=== PATIENT | female | born 1995 | race Caucasian/White ===

== ENCOUNTER → 2018-08-22 08:52 | Outpatient (CLI) | payer OTHER, SELFPAY ==
--- NOTE | 2018-08-22 08:57 | XR_ITS ---
XR tibia fibula RT 2V CLINICAL INDICATION: ITS.REASON: Rt leg pain ORDERING PHYSICIAN: Tanesha Mckeon MD PATIENT AGE: 23 years Comparison: None FINDINGS: No fracture dislocation or other significant anomalies IMPRESSION: Negative right tib-fib
== END ==
PROVIDERS: PCP Emergency Medicine; Visit Provider Orthopaedic Surgery
DX: M79.604 Pain in right leg (principal)
CPT/HCPCS: 73590

== ENCOUNTER 2020-03-26 19:10 | Emergency (ER) | payer OTHER, SELFPAY ==
[2020-03-26 19:34] VITALS: BP 150/101; PULSE 95; RESP 14; TEMP 37.2; O2SAT 97; BMI 51.5
--- NOTE | 2020-03-26 20:00 | HMH.EDUTC ---
[facility] [place] Disposition Clinical Impression: Sinusitis Qualifiers: Sinusitis location: unspecified location Chronicity: acute Recurrence: non-recurrent Qualified Code(s): J01.90 - Acute sinusitis, unspecified Pharyngitis Qualifiers: Pharyngitis/tonsillitis etiology: unspecified etiology Qualified Code(s): J02.9 - Acute pharyngitis, unspecified Disposition: Home, Self-Care Condition on Discharge: Good Instructions: Sinusitis, DI for Sinusitis Additional Instructions: Drink plenty of fluids. Take tylenol or ibuprofen for pain or fever. Take the medications as directed. Follow up with your regular doctor. GO TO THE ER FOR ANY WORSENING SYMPTOMS Don't start the oral steroids until tomorrow, since you had the shot here today. Prescriptions: Brompheniramine/Pseudoephed/Dm [Bromfed Dm Cough Syrup] 5 ml PO Q6HP PRN #240 syrup PRN Reason: Cough Transmission Status: Received by [facility] # Ondansetron [Zofran 4mg ODT] 4 mg PO Q8HP PRN #20 tab.rapdis PRN Reason: Nausea Transmission Status: Received by [facility] # Doxycycline Hyclate [Doxycycline 100mg Capsule] 100 mg PO Q12 10 Days #20 cap Transmission Status: Received by [facility] # methylPREDNISolone [Medrol] 4 mg PO DIRECTED 6 Days #21 tab.ds.pk Transmission Status: Received by [facility] # Referrals: Aiden Ramirez MD [Primary Care Provider] - Forms: Work/School Release Time of Disposition: 20:22 Medical Decision Making - Medical Records Medical records reviewed: No: I reviewed the patient's medical records. - Moy Inquiry Pt receiving controlled substance: No Vital Signs: 03/26/20 19:34 03/26/20 20:38 Temperature 98.9 F 98.9 F Temperature Source Oral Oral Pulse Rate 95 H Pulse Rate [Radial] 95 H Respiratory Rate 14 14 Blood Pressure 150/101 H Blood Pressure [Right Arm] 150/101 H Blood Pressure Mean [Right Arm] 117 Blood Pressure Source Automatic Cuff Blood Pressure Source [Right Arm] Automatic Cuff Blood Pressure Position Sitting Blood Pressure Position [Right Arm] Sitting 02 Sat by Pulse Oximetry 97 Oxygen Delivery Method Room Air Room Air Orders (Tests/Meds): ED MEDICATIONS Discontinued Medications Generic Name Dose Route Start Last Admin Trade Name Terri PRN Reason Stop Dose Admin Ceftriaxone Sodium 1 gm 03/26/20 20:03 03/26/20 20:28 Rocephin 1gm Vial IM 03/26/20 20:04 1 gm ONCE ONE Administration Protocol Lidocaine HCl 0 ml 03/26/20 20:03 03/26/20 20:28 Lidocaine 1% 10ml Mdv IM 03/26/20 20:04 2.1 ml ONCE ONE Administration Methylprednisolone Sodium Succinate 125 mg 03/26/20 20:03 03/26/20 20:28 Solu-Medrol 125mg/2ml Vial IM 03/26/20 20:04 125 mg ONCE ONE Administration [facility] [place] HPI - General Stated complaint: Sore throat, cough Time Seen by Provider: 03/26/20 20:00 Mode of Arrival: Ambulatory Source of Information: Patient Limitations: No Limitations Description of Symptoms (Recalled from Triage Doc. by RN): sore throat, cough HEENT Symptoms (Recalled from RN notes): Yes Resp Symptoms (Recalled from RN notes): No Skin Symptoms (Recalled from RN notes): No MS Symptoms (Recalled from RN notes): No Functional Status (Recalled from RN notes): wnl - History of Present Illness Provider Complaint: She reports that she has had sinus congestion, bilateral ear pain and sinus drainage for the past 3 days. - Related Data Previous Rx's Medication Instructions Recorded Brompheniramine/Pseudoephed/Dm 5 ml PO Q6HP PRN #240 syrup 03/26/20 [Bromfed Dm Cough Syrup] Doxycycline Hyclate [Doxycycline 100 mg PO Q12 10 Days #20 cap 03/26/20 100mg Capsule] Ondansetron [Zofran 4mg ODT] 4 mg PO Q8HP PRN #20 tab.rapdis 03/26/20 methylPREDNISolone [Medrol] 4 mg PO DIRECTED 6 Days #21 03/26/20 tab.ds.pk Allergies Allergy/AdvReac Type Severity Reaction Status Date / Time amoxici
[2020-03-26 20:38] VITALS: BP 150/101; PULSE 95; RESP 14; TEMP 37.2; O2SAT 97
== END 2020-03-26 20:40 | disposition home or self-care (01) ==
PROVIDERS: Emergency Provider Nurse Practitioner Family; PCP Emergency Medicine
DX: J01.90 Acute sinusitis, unspecified (principal); J02.9 Acute pharyngitis, unspecified; G43.709 Chronic migraine without aura, not intractable, without status migrainosus; Z88.1 Allergy status to other antibiotic agents
CPT/HCPCS: 96372; 99201

== ENCOUNTER 2020-06-29 15:49 | Emergency (ER) | payer OTHER, SELFPAY ==
[2020-06-29 16:33] VITALS: BP 152/79; PULSE 83; RESP 21; TEMP 36.5; O2SAT 98; BMI 48.4
--- NOTE | 2020-06-29 16:38 | HMH.EDUTC ---
[facility] [place] Disposition Clinical Impression: URI (upper respiratory infection) Qualifiers: URI type: unspecified URI Qualified Code(s): J06.9 - Acute upper respiratory infection, unspecified Disposition: Home, Self-Care Condition on Discharge: Good Instructions: Sore Throat, DI for Sinusitis, Azithromycin Additional Instructions: *Monitor Temp, Over the counter Motrin or Tylenol as directed/as needed Tylenol every 4 hours and Motrin every 6 hours (as long as your family doctor has told you that you can take it) for fever or pain. and straight to ER if unable to lower temp less than 101.0 after medication given *Warm salt water gargles may help to soothe the throat *Throat Lozenges *Warm fluids like tea with honey may help to soothe the throat *Sleep elevated *Humidifier/Vaporizer *Flonase 2 sprays in each nostril daily but be aware that it may take 2-3 days before you notice improvement Follow up IMMEDIATELY for new or worsening symptoms or no Noticeable improvement over the next 48-72 hours. 911 for difficulty breathing or swallowing You was tested for today for COVID19 your test result should be back in the next 24-48 hours, you may call to the [facility] [place] later today or tomorrow to see if your test results are back and the result [phone] [facility] [place] hours are 9am-9pm You was given a handout with instructions for Self Quarantine and Self isolation for while you wait on test results and what to do if they are positive If you are positive the Health Dept will be contacting you also Prescriptions: Brompheniramine/Pseudoephed/Dm [Bromfed Dm Cough Syrup] 5 - 10 ml PO Q46H PRN #150 ml PRN Reason: Cough Transmission Status: Pending to [facility] # Fluticasone Propionate [Flonase 50mcg nasal spray 16gm] 1 spr NS DAILY #1 bottle Transmission Status: Pending to [facility] # Azithromycin [Z-Maximino 250mg Tab] 250 mg PO DIRECTED #6 tab Transmission Status: Pending to [facility] # Referrals: Aiden Ramirez MD [Primary Care Provider] - As needed Forms: Work/School Release Time of Disposition: 16:44 Medical Decision Making - Moy Inquiry Pt receiving controlled substance: No Moy was queried for this patient: No Vital Signs: 06/29/20 16:33 Temperature 97.7 F Temperature Source Oral Pulse Rate [Right Brachial] 83 Respiratory Rate 21 Blood Pressure [Right Arm] 152/79 H Blood Pressure Mean [Right Arm] 103 Blood Pressure Source [Right Arm] Automatic Cuff Blood Pressure Position [Right Arm] Sitting 02 Sat by Pulse Oximetry 98 Oxygen Delivery Method Room Air Orders (Tests/Meds): ORDERS Category Date Time Status Covid-19 Nasal PCR Sendout Jose Routine Lab 06/29/20 16:08 Ordered [facility] [place] HPI - General Stated complaint: covid test Time Seen by Provider: 06/29/20 16:38 Mode of Arrival: Ambulatory Source of Information: Patient Limitations: No Limitations Description of Symptoms (Recalled from Triage Doc. by RN): PATIENT REQUESTING COVID TEST D/T EXPOSURE; C/O SINUS DRAINAGE, COUGH, SOA, AND DIARRHEA X 2 DAYS HEENT Symptoms (Recalled from RN notes): Yes Resp Symptoms (Recalled from RN notes): No Skin Symptoms (Recalled from RN notes): No MS Symptoms (Recalled from RN notes): No Functional Status (Recalled from RN notes): WNL - History of Present Illness Provider Complaint: Patient state that someone that she works with recently tested positive for COVID States that she wasnt sure if she was having COVID symptoms or having a sinus infection States that she has been having thick yellowish green mucous from her nose and drainage in the back of her throat that is making her throat hurt States that she has a cough when she lays down and came in today to get checked States that also has had diarrhea on and off for 2 days - Related Data Previous Rx's Medication Instructions Recorded Azithromycin [Z-Maximino 250mg Tab] 250 mg PO DIRECTED #6 tab 06/29/20 Brompheniramine/Ps
[2020-06-29 16:50] VITALS: BP 152/79; PULSE 83; RESP 21; TEMP 36.5; O2SAT 98
[2020-06-29 19:13] LABS: UTC Influenza A Antigen Negative (Negative)
[2020-06-29 19:14] LABS: UTC Influenza B Antigen Negative (Negative)
[2020-07-01 15:58] LABS: Covid-19 Nasal PCR Sendout Lex Not Detected
== END 2020-06-29 17:05 | disposition home or self-care (01) ==
PROVIDERS: Emergency Provider Nurse Practitioner; PCP Emergency Medicine
DX: Z20.828 Contact with and (suspected) exposure to other viral communicable diseases (principal); J06.9 Acute upper respiratory infection, unspecified; Z88.1 Allergy status to other antibiotic agents
CPT/HCPCS: 87804; 99201; U0004

== ENCOUNTER 2022-02-02 02:08 | Emergency (ER) | payer BC, SELFPAY ==
[2022-02-02 02:09] VITALS: BP 137/58; PULSE 79; RESP 16; TEMP 37.2; O2SAT 100; BMI 53.2
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
--- NOTE | 2022-02-02 03:03 | PC.NURSE ---
CLEARED C-SPINE USING [id number] RULES
--- NOTE | 2022-02-02 03:51 | PC.NURSE ---
rounded on pt and advised her we were waiting on x-ray reads. no other needs at this time
[2022-02-02 04:33] VITALS: BP 137/58; PULSE 81; RESP 18; TEMP 36.6; O2SAT 99
== END 2022-02-02 04:35 | disposition home or self-care (01) ==
PROVIDERS: Emergency Provider Emergency Medicine; PCP Emergency Medicine
DX: S43.401A Unspecified sprain of right shoulder joint, initial encounter (principal); S20.219A Contusion of unspecified front wall of thorax, initial encounter; V49.50XA Passenger injured in collision with unspecified motor vehicles in traffic accident, initial encounter; Z88.1 Allergy status to other antibiotic agents; G43.909 Migraine, unspecified, not intractable, without status migrainosus
CPT/HCPCS: 71046; 73030

== ENCOUNTER → 2023-01-26 23:28 | Outpatient (CLI) | payer BC, SELFPAY ==
[2023-01-26 18:20] LABS: Basophils % 0.2 % (0.1-2.0); Eosinophils # 0.1 K/mm3 (0.0-0.4); Eosinophils % 0.8 % (0.1-12.0); Hematocrit 40.8 % (37.0-47.0); Hemoglobin 13.1 g/dL (12.2-16.2); Lymphocytes # 3.1 K/mm3 (0.7-4.5); Lymphocytes % 26.3 % (10-50); Mean Corpuscular HGB Conc 32.2 g/dL (31.8-35.4); Mean Corpuscular Hemoglobin 26.1 pg (27.0-31.2); Mean Corpuscular Volume 81.1 fl (81-99); Mean Platelet Volume 9.1 fl (7.4-10.4); Monocytes # 0.5 K/mm3 (0.1-1.0); Monocytes % 3.9 % (1.7-9.3); Neutrophils % 68.8 % (37.0-80.0); Platelet Count 282 K/mm3 (142-424); Red Blood Count 5.03 M/mm3 (4.20-5.40); Red Cell Distribution Width 13.5 % (11.5-17.5); White Blood Count 11.7 K/mm3 (4.8-10.8)
[2023-01-26 19:07] LABS: Hemoglobin A1C 5.1 % (4.0-6.0)
[2023-01-26 19:33] LABS: Alanine Aminotransferase 21 U/L (12-78); Albumin Level 4.3 g/dl (3.5-5.0); Albumin/Globulin Ratio 1.8 (1.1-1.8); Alkaline Phosphatase 101 U/L (38-126); Anion Gap 17.4 mEq/L (5-15); Aspartate Amino Transferase 22 U/L (14-36); Bilirubin,Total 0.4 mg/dl (0.2-1.3); Blood Urea Nitrogen 9 mg/dl (7-17); Calcium 9.1 mg/dl (8.4-10.2); Carbon Dioxide 25 mmol/L (22.0-30.0); Chloride 102 mmol/L (98-107); Chol/HDL Ratio 5.1 (1-3.5); Cholesterol 169 mg/dl (140-200); Estimated Glomerular Filt Rate 150 ml/min (>60); GFR (African American) 182 ML/MIN (>60); Globulin 2.4 g/dL (1.3-3.2); Glucose 88 mg/dl (74-100); HDL Cholesterol 33 mg/dl (40-60); Potassium 4.4 mmoL/L (3.5-5.1); Sodium 140 mmol/L (136-145); Total Protein,Serum 6.7 g/dl (6.3-8.2); Triglycerides 99 mg/dl (30-150); VLDL Cholesterol 20 mg/dL (0-40)
[2023-01-26 19:44] LABS: Direct LDL Cholesterol 113.87 mg/dL (100-129)
[2023-01-26 19:51] LABS: 25-OH Vitamin D, Total 25.3 ng/mL (30-100)
[2023-01-26 20:04] LABS: Thyroid Stimulating Hormone 1.34 uIU/mL (0.465-4.68)
== END ==
PROVIDERS: PCP Nurse Practitioner Family; Visit Provider Nurse Practitioner Family
DX: I10 Essential (primary) hypertension (principal); R53.83 Other fatigue; E55.9 Vitamin D deficiency, unspecified; E66.9 Obesity, unspecified; Z68.42 Body mass index [BMI] 45.0-49.9, adult; Z79.899 Other long term (current) drug therapy
CPT/HCPCS: 80053; 80061; 82306; 83036; 84443; 85025

== ENCOUNTER 2024-04-12 09:41 | Outpatient (CLI) | payer BC, SELFPAY ==
[2024-04-12 18:14] LABS: Microscopic, Urine URINE MICROSCOPIC (MICROSCOPIC)
[2024-04-12 18:36] LABS: Basophils # 0.1 K/mm3 (0-0.2); Basophils % 0.7 % (0.1-2.0); Eosinophils # 0.1 K/mm3 (0.0-0.4); Eosinophils % 0.7 % (0.1-12.0); Hematocrit 42.8 % (37.0-47.0); Hemoglobin 13.2 g/dL (12.2-16.2); Lymphocytes # 2.5 K/mm3 (0.7-4.5); Lymphocytes % 21.6 % (10-50); Mean Corpuscular HGB Conc 30.8 g/dL (31.8-35.4); Mean Corpuscular Hemoglobin 26.5 pg (27.0-31.2); Monocytes # 0.4 K/mm3 (0.1-1.0); Monocytes % 3.6 % (1.7-9.3); Neutrophils # 8.4 K/mm3 (1.8-7.8); Neutrophils % 73.4 % (37.0-80.0); Platelet Count 331 K/mm3 (142-424); Red Blood Count 4.98 M/mm3 (4.20-5.40); Red Cell Distribution Width 14.3 % (11.5-17.5); White Blood Count 11.4 K/mm3 (4.8-10.8)
[2024-04-12 18:58] LABS: Alanine Aminotransferase 21 U/L (12-78); Albumin Level 3.8 g/dl (3.5-5.0); Albumin/Globulin Ratio 1.1 (1.1-1.8); Alkaline Phosphatase 87 U/L (38-126); Aspartate Amino Transferase 28 U/L (14-36); Bilirubin,Total 0.6 mg/dl (0.2-1.3); Blood Urea Nitrogen 8 mg/dl (7-17); Calcium 9.1 mg/dl (8.4-10.2); Carbon Dioxide 27 mmol/L (22.0-30.0); Chloride 106 mmol/L (98-107); Estimated Glomerular Filt Rate 121 ml/min (>60); GFR (African American) 146 ML/MIN (>60); Globulin 3.4 g/dL (1.3-3.2); Glucose 102 mg/dl (74-100); Sodium 137 mmol/L (136-145); Total Protein,Serum 7.2 g/dl (6.3-8.2)
[2024-04-12 19:15] LABS: 25-OH Vitamin D, Total 22.6 ng/mL (30-100)
[2024-04-12 19:24] LABS: Appearance,Urine CLEAR (Clear); Bilirubin,Urine Negative (Negative); Blood, Urine TRACE-L (Negative); Color,Urine YELLOW (Yellow); Glucose,Urine (UA) Negative (Negative); Ketones,Urine Negative (Negative); Leukocyte Esterase,Urine Negative (Negative); Nitrate,Urine Negative (Negative); PH,Urine 6.5 (5.0-8.5); Protein,Urine TRACE (Negative); Specific Gravity, Urine 1.025 (1.005-1.030); Urobilinogen,Urine 0.2 EU/dl (0.2)
[2024-04-12 19:42] LABS: RBC,Urine Occasional #/hpf (0-3)
[2024-04-12 19:43] LABS: Bacteria,Urine Trace /lpf; Mucus,Urine 1+ /lpf
[2024-04-12 19:45] LABS: Calcium Oxalate Crystals,Urine Trace /lpf
[2024-04-12 20:31] LABS: HIV (1&2) Antibody Rapid NONREACTIVE (NONREACTIVE)
[2024-04-14 08:29] LABS: HCV Ab Non Reactive (Non Reactive)
[2024-04-14 11:21] LABS: Rapid Plasma Reagin Ab Titer Non Reactive titer (NonRea<1:1)
[2024-04-17 08:49] LABS: HSV-1 DNA Negative (Negative); HSV-2 DNA Negative (Negative)
== END 2024-04-12 23:59 | disposition home or self-care (01) ==
LOC: LAB.DROPOF 04-15 09:42
PROVIDERS: PCP Nurse Practitioner Family; Visit Provider Nurse Practitioner Family
DX: F41.9 Anxiety disorder, unspecified (principal); Z11.4 Encounter for screening for human immunodeficiency virus [HIV]; Z11.59 Encounter for screening for other viral diseases; E66.01 Morbid (severe) obesity due to excess calories; E55.9 Vitamin D deficiency, unspecified; Z68.43 Body mass index [BMI] 50.0-59.9, adult
CPT/HCPCS: 80053; 81001; 82306; 85025; 86593; 86803; 87389; 87529